=== PATIENT | female | born 1995 | race Caucasian/White ===

== ENCOUNTER 2022-06-17 02:45 | Inpatient (IN) | payer MEDICAID ==
[2022-06-17] MEDS ORDERED: Penicillin G Potassium 5 MILLUNITS in Sodium Chloride 0.9% 100 ML IV ONE (16:11)
[2022-06-17] MEDS ORDERED: Misoprostol 400 MCG (4 X 100 MCG TAB) RECTAL PRN (16:53)
[2022-06-17] MEDS ORDERED: Ondansetron 4 MG/2 ML SDV IVPUSH PRN (16:53)
[2022-06-17] MEDS ORDERED: Methylergonovine 0.2 MG/1 ML Amp IM PRN (16:53)
[2022-06-17] MEDS ORDERED: Carboprost Tromethamine 250 MCG/1 ML Amp IM PRN (16:53)
[2022-06-17] MEDS ORDERED: Lidocaine 1% 30 ML SDV INJECT PRN (16:53)
[2022-06-17] MEDS ORDERED: Acetaminophen 325 MG Tab PO PRN (16:53)
[2022-06-17] MEDS ORDERED: Sodium Chloride 0.9% 10 ML Syringe FLUSH PRN ×2 (16:53→16:56)
[2022-06-17] MEDS ORDERED: fentaNYL 100 MCG/2 ML SDV IVPUSH PRN (16:53)
[2022-06-17] MEDS ORDERED: Tranexamic Acid 1,000 MG in Sodium Chloride 0.9% 100 ML IV PRN (16:53)
[2022-06-17] MEDS ORDERED: Lactated Ringers 1,000 ML IV ONE (16:53)
[2022-06-17] MEDS ORDERED: Oxytocin/Normal Saline 30 UNIT/500 ML BAG IV SCH (17:00)
[2022-06-17] MEDS ORDERED: Penicillin G Potassium 3 MILLUNITS in Sodium Chloride 0.9% 100 ML IV SCH (17:00)
[2022-06-17] MEDS: Lactated Ringers 1,000 ML IV SCH ×2 (17:39→23:22)
[2022-06-17] MEDS: Penicillin G Potassium 3 MILLUNITS in Sodium Chloride 0.9% 100 ML IV SCH (21:00)
[2022-06-17] MEDS ORDERED: ePHEDrine 50 MG/ML SDV ONE (22:52)
[2022-06-17] MEDS ORDERED: fentaNYL 100 MCG/2 ML SDV ONE (22:52)
[2022-06-17] MEDS ORDERED: Bupivacaine 0.25% 10 ML SDV ONE (22:53)
[2022-06-17] MEDS ORDERED: Phenylephrine HCl In 0.9% NaCl 1 MG/10 ML Syringe ONE (22:53)
[2022-06-17] MEDS ORDERED: Phenylephrine HCl In 0.9% NaCl 1 MG/10 ML Syringe IVPUSH PRN (23:14)
[2022-06-17] MEDS ORDERED: ePHEDrine 50 MG/ML SDV IVPUSH PRN (23:14)
[2022-06-17] MEDS ORDERED: Ropivacaine 200 MG in Premix Bag 1 BAG EPIDUR SCH (23:15)
[2022-06-18] MEDS: Penicillin G Potassium 3 MILLUNITS in Sodium Chloride 0.9% 100 ML IV SCH (01:20)
[2022-06-18] MEDS ORDERED: Oxytocin 10 Units/1 ML SDV IM PRN (03:00)
[2022-06-18] MEDS ORDERED: Simethicone 80 MG Tab.Chew PO PRN (03:00)
[2022-06-18] MEDS ORDERED: Benzocaine/Menthol 20%-0.5% Spray 78 GM Cannister TOP PRN (03:00)
[2022-06-18] MEDS ORDERED: Ibuprofen 800 MG Tab PO PRN (03:00)
[2022-06-18] MEDS: Acetaminophen 325 MG Tab PO PRN ×3 (06:33→21:20)
[2022-06-18] MEDS: Sodium Chloride 0.9% 10 ML Syringe FLUSH SCH ×2 (07:36→08:15)
[2022-06-18] MEDS: Prenatal Multivitamin with Calcium/Folic Acid/Iron Tab PO SCH (08:13)
[2022-06-18] MEDS: Docusate Sodium 100 MG Cap PO PRN ×2 (08:13→21:20)
[2022-06-19] MEDS: Acetaminophen 325 MG Tab PO PRN (04:26)
[2022-06-19] MEDS: Docusate Sodium 100 MG Cap PO PRN (08:46)
[2022-06-19] MEDS: Prenatal Multivitamin with Calcium/Folic Acid/Iron Tab PO SCH (08:46)
[2022-06-19] MEDS ORDERED: fentaNYL 100 MCG/2 ML SDV IV ONE (10:59)
[2022-06-19] MEDS ORDERED: Bupivacaine 0.25% 10 ML SDV INJECT ONE (10:59)
== END 2022-06-19 11:00 | disposition home or self-care (01) | DRG 807 ==
LOC: DL.OB 02:45 → OBSVTOIN 06-18 02:45
PROVIDERS: ADMIT Family Medicine; ATTEND Family Medicine
PROC: 3E0R3BZ Introduction of Anesthetic Agent into Spinal Canal, Percutaneous Approach (ICD-10-PCS; principal; 2022-06-18)
PROC: 00HU33Z Insertion of Infusion Device into Spinal Canal, Percutaneous Approach (ICD-10-PCS; 2022-06-18)
PROC: 10E0XZZ Delivery of Products of Conception, External Approach (ICD-10-PCS; 2022-06-18)
PROC: 10907ZC Drainage of Amniotic Fluid, Therapeutic from Products of Conception, Via Natural or Artificial Opening (ICD-10-PCS; 2022-06-18)
PROC: 0HQ9XZZ Repair Perineum Skin, External Approach (ICD-10-PCS; 2022-06-18)
DX: O13.4 Gestational [pregnancy-induced] hypertension without significant proteinuria, complicating childbirth (principal); Z37.0 Single live birth; Z3A.38 38 weeks gestation of pregnancy; O99.824 Streptococcus B carrier state complicating childbirth
CPT/HCPCS: 01963; 01967; 36415; 51702; 59409; 85027; 86592; 86803; 87340; A9270-GY; J2405; J2540; J2590; J3010; J3490; J7120